=== PATIENT | male | born 1950 | race Caucasian/White ===

== ENCOUNTER 2020-07-08 18:15 | Inpatient (IN) | payer MEDICARE, OTHER ==
[~2020-07-08] VITALS: Ht 177.8 cm; Wt 91.2 kg
[2020-07-08 18:24] VITALS: BP 145/80
[2020-07-08] MEDS ORDERED: CARVEDILOL12.5 MG PO (18:30)
[2020-07-08] MEDS ORDERED: PROTONIX40 M2 PO (18:30)
[2020-07-08] MEDS ORDERED: SPIRONOLACTONE25 MG PO (18:30)
[2020-07-08] MEDS ORDERED: LISINOPRIL5 MG PO (18:31)
[2020-07-08] MEDS ORDERED: SENOKOT-S TABL1 EACH PO (18:31)
[2020-07-08] MEDS ORDERED: ATORVASTATIN CA80 MG PO (18:31)
[2020-07-08] MEDS ORDERED: FLOMAX0.4 MG PO (18:31)
[2020-07-08 19:16] LABS: ABSOLUTE BASOPHILS 0.1 thou/uL (0.0-0.2); ABSOLUTE EOSINOPHILS 0.3 thou/uL (0.0-0.7); ABSOLUTE LYMPHOCYTES 2.2 thou/uL (0.8-5.3); ABSOLUTE MONOCYTES 0.9 thou/uL (0.0-1.2); ABSOLUTE NEUTROPHILS 7.1 thou/uL (1.6-8.1); BASOPHILS 0.9 %; EOSINOPHILS 2.8 %; HEMATOCRIT 41.7 % (42.0-52.0); LYMPHOCYTES 20.9 %; MCH 31.6 pg (26.0-34.0); MCHC 33.7 g/dL (28.0-37.0); MCV 93.9 fL (80.0-100.0); MONOCYTES 8.5 %; MPV 8.4 fl. (7.2-11.1); NUCLEATED RBCS 0 /100WBC; PLATELET COUNT* 153 thou/uL (150-400); POLYS 66.9 %; RBC 4.44 mil/uL (4.50-6.00); RDW-CV 13.5 % (10.5-14.5); WBC 10.6 thou/uL (4.0-11.0)
[2020-07-08 19:19] LABS: URINE BILIRUBIN NEGATIVE (Negative); URINE BLOOD NEGATIVE (Negative); URINE CLARITY CLEAR; URINE COLOR YELLOW; URINE GLUCOSE-RANDOM NEGATIVE (Negative); URINE KETONES NEGATIVE (Negative); URINE LEUKOCYTES-REFLEX NEGATIVE (Negative); URINE NITRITE-REFLEX NEGATIVE (Negative); URINE PROTEIN NEGATIVE (Negative); URINE SPECIFIC GRAVITY >= 1.030 (1.005-1.030); URINE UROBILINOGEN 0.2 E.U./dl (0.2-1.0)
[2020-07-08 19:22] LABS: CALCIUM 8.4 mg/dL (8.5-10.1); CREATININE 1.5 mg/dL (0.6-1.3); POTASSIUM 4.2 mmol/L (3.5-5.1)
[2020-07-08 19:25] LABS: INR 1.1; PROTIME 11.2 Seconds (9.20-11.50)
[2020-07-08 19:33] LABS: ALBUMIN 3.7 g/dL (3.4-5.0); TOTAL BILIRUBIN 0.4 mg/dL (<0.1-1.0); TOTAL PROTEIN 6.9 g/dL (6.4-8.2)
[2020-07-09] VITALS (8 sets, daily range): BP systolic 98–135; BP diastolic 56–80
[2020-07-09] MEDS ORDERED: CARVEDILOL12.5 MG PO (00:48)
[2020-07-09] MEDS ORDERED: LITE COAT ASPI325 MG PO (00:49)
--- NOTE | 2020-07-09 09:50 | EKG ---
[place] [address] ELECTROCARDIOGRAM REPORT Name: FRITZ KAUR Room: [address] ADM IN ..#: [id number] Admission: 07/08/20 Attend Phys: Jerome Olsen, Discharge: Date of : 46 Date of Service: 07/08/20 190 Report #: [id number] THIS REPORT FOR: //name// [facility] ED Test Date: 2020-07-08 Test Time: 19:04:21 Pat Name: FRITZ KAUR Department: Room: [facility] Gender: M Maintenance Foreman: : 1950 Requested By: La Nena Carrillo Order Number: [id number] MD: Vick Fair Measurements Intervals [place] Rate: 60 P: TX: 202 QRS: 16 QRSD: 95 T: 59 QT: 428 QTc: 428 Interpretive Statements Atrial-paced rhythm Inferior infarct, old No previous ECG available for comparison Electronically Signed On 07-09-2020 9:50:42 SEAT COVER[employer] by Vick Fair [email or web address] <ELECTRONICALLY SIGNED> By: Vick Fair MD, [facility] 07/09/20 0950 1904 1904 Vick Fair MD, [facility] /EPI
[2020-07-10 02:06] LABS: GLYCOHEMOGLOBIN (HGB A1C) 7.4 % (4.8-5.6)
[2020-07-10 03:37] VITALS: BP 112/68
[2020-07-10 04:27] LABS: HEMATOCRIT 39.6 % (42.0-52.0); HEMOGLOBIN 13.4 gm/dL (14.0-18.0); MCH 31.3 pg (26.0-34.0); MCHC 33.9 g/dL (28.0-37.0); MCV 92.4 fL (80.0-100.0); MPV 8.6 fl. (7.2-11.1); RBC 4.28 mil/uL (4.50-6.00); RDW-CV 13.6 % (10.5-14.5); WBC 8.9 thou/uL (4.0-11.0)
[2020-07-10 04:30] LABS: CALCIUM 8.7 mg/dL (8.5-10.1); CREATININE 1.1 mg/dL (0.6-1.3); POTASSIUM 3.7 mmol/L (3.5-5.1)
[2020-07-10 08:00] VITALS: BP 106/60
[2020-07-10 14:47] VITALS: BP 106/60
[2020-07-10 15:04] VITALS: BP 106/60
--- NOTE | 2020-07-12 18:25 | CON ---
[address] [address] CONSULTATION Name: FRITZ KAUR Room: [address] IN .R.#: [id number] Admission: 07/08/20 Attend Phys: Jerome Olsen MD Discharge: 07/10/20 Date of : 46 Report #: [id number] THIS REPORT FOR: cc: [facility] - Clinic physician unknown [facility] - Clinic physician unknown ~ Vick Fair MD [facility] DATE OF SERVICE: 07/09/2020 INDICATION: Cardiac clearance. HISTORY OF PRESENT ILLNESS: The patient is a 70-year-old gentleman, who reports history of myocardial infarction approximately 3 years ago with stenting to the LAD. At that time, he had a pacing ICD placed. The patient has had no cardiac events since. He reports his most recent ejection fraction was 55%. He is not having any symptoms to suggest angina or congestive heart failure. The patient was admitted to the hospital with melena. There are plans for gastrointestinal evaluation. The patient is without cardiac complaint. PAST MEDICAL HISTORY: 1. Pacing ICD in place, presumably for primary prevention. 2. History of ischemic cardiomyopathy with normalization of his ejection fraction on most recent noninvasive studies. 3. Myocardial infarction 3 years ago with percutaneous coronary intervention. 4. GERD. 5. Left hip replacement. HOME MEDICATIONS: 1. Carvedilol 12.5 mg p.o. b.i.d. 2. Protonix 40 mg daily. 3. Spironolactone 12.5 mg daily. 4. Senokot-S tablets 1 tablet p.o. b.i.d. 5. Flomax 0.4 mg daily. 6. Atorvastatin 80 mg daily. 7. Lisinopril 5 mg daily. ALLERGIES: None documented. SOCIAL HISTORY: The patient denies use of tobacco or alcohol. FAMILY HISTORY: Noncontributory. REVIEW OF SYSTEMS: A 14-point review of systems [place] [id number] CONSULTATION Name: FRITZ KAUR Room: [address]#: [id number] Admission: 07/08/20 Attend Phys: Jerome Olsen MD Discharge: 07/10/20 Date of : 46 Report #: [id number] PHYSICAL EXAMINATION: VITAL SIGNS: Stable. Blood pressure 145/80, pulse is 60 and regular. GENERAL: This is a pleasant gentleman, in no distress. Mood and affect appropriate. HEENT: Extraocular muscles intact. Mucous membranes are moist. NECK: Shows no jugular venous distention. There are no carotid bruits. CHEST: Reveals clear lung cooney without wheezes or rales. CARDIAC: Reveals regular rhythm with normal S1, S2. I do not appreciate gallop or murmur. ABDOMEN: Reveals normal bowel sounds. The abdomen is soft and nontender. EXTREMITIES: Shows no edema. SKIN: Dry. LABORATORY DATA: A 12-lead EKG shows atrial pacing with normal AV conduction. There are no acute ST segment abnormalities. There are Q-waves inferiorly suggestive of old inferior infarct. Labs are reviewed. Troponin is unremarkable. IMPRESSION AND RECOMMENDATIONS: 1. Coronary artery disease, presently stable. He is having no symptoms to suggest angina. Continue home medications as outlined above. 2. History of ischemic cardiomyopathy with normalization of his ejection fraction on most recent noninvasive studies. Continue medications outlined above, including carvedilol, lisinopril, and spironolactone. 3. Dyslipidemia. Continue atorvastatin 80 mg daily. 4. Acute gastrointestinal bleed, likely upper. The patient is cleared from a cardiac standpoint to proceed with EGD and possible colonoscopy. 5. Implantable cardioverter defibrillator pacer in place. Normal function on telemetry. The patient is having no issues with his pacemaker. Continue followup with his primary facilities locator as suggested. <ELECTRONICALLY SIGNED> By: Vick Fair MD, FACC 07/12/20 1825 0946 1037[facility] Cent[facility] Fair MD, FACC /nt
== END 2020-07-10 15:17 | disposition home or self-care (01) | DRG 378 ==
LOC: M.ERS 18:15 → M.2W 20:45 → M.TBA-ER 20:45 → M.2W 07-09 00:15
PROVIDERS: Family Medicine; Nurse Practitioner Family; ADMIT Internal Medicine; ATTEND Internal Medicine
PROC: 0DB68ZX Excision of Stomach, Via Natural or Artificial Opening Endoscopic, Diagnostic (ICD-10-PCS; principal; 2020-07-09)
PROC: 0DBL8ZZ Excision of Transverse Colon, Via Natural or Artificial Opening Endoscopic (ICD-10-PCS; principal; 2020-07-09)
DX: K29.71 Gastritis, unspecified, with bleeding (principal); N17.9 Acute kidney failure, unspecified; I42.9 Cardiomyopathy, unspecified; K21.9 Gastro-esophageal reflux disease without esophagitis; E78.5 Hyperlipidemia, unspecified; K59.00 Constipation, unspecified; K44.9 Diaphragmatic hernia without obstruction or gangrene; E11.9 Type 2 diabetes mellitus without complications; I11.0 Hypertensive heart disease with heart failure; K63.5 Polyp of colon; I25.10 Atherosclerotic heart disease of native coronary artery without angina pectoris; I50.9 Heart failure, unspecified; K64.8 Other hemorrhoids; Z96.642 Presence of left artificial hip joint; Z20.822 Contact with and (suspected) exposure to COVID-19; I25.2 Old myocardial infarction; Z95.5 Presence of coronary angioplasty implant and graft; Z95.0 Presence of cardiac pacemaker; Z79.899 Other long term (current) drug therapy